=== PATIENT | female | born 1980 | race African-American/Black ===

== ENCOUNTER 2017-01-09 18:07 | Emergency (ER) | payer OTHER, MEDICAID ==
[~2017-01-09] VITALS: Ht 160 cm; Wt 131.5 kg
[~2017-01-09 18:07] MED LIST: ALBUTEROL SULF8.5 GM INH; ALEVE220 M2 PO; AMOXICILLIN125 MG ORAL; AMOXICILLIN875 MG PO; AUGMENTIN 875-1 EAC1 ORAL; AURALGAN OTIC1 DROP LEFT EYE; CIPRO500 MG PO; CLINDAMYCIN HC300 MG ORAL; DIFLUCAN100 MG ORAL; IBUPROFEN800 MG PO; KEFLEX500 MG ORAL; MOTRIN800 MG PO; NITROFURANTOIN100 M2 ORAL; NKM; NORCO 10-325 T1 EACH ORAL; NORCO 10/3251 EA ORAL; NORCO 5-325 TA1 EAC1 ORAL; NORCO1 E1 ORAL; ONDANSETRON ODT4 MG ORAL; PERCOCET 5-3251 EACH PO; PHENERGAN6.25 MG/5 ORAL; PROMETHAZINE-C118 M1 ORAL; VICODIN 5-3001 EACH PO; VICODIN ES 7.51 EACH ORAL; ZITHROMAX250 MG ORAL; ZOFRAN ODT4 MG ORAL
[2017-01-09 18:17] VITALS: BP 155/61
--- NOTE | 2017-01-09 18:40 | Emergency Room Report ---
History of Present Illness General Chief Complaint: Lower Back Pain or Injury Source: Patient Present Illness HPI 36-year-old female presents to the emergency department complaining of 10 out of 10 in severity localized right-sided low back pain x3 days. Patient reports acute onset after playing on the ground with her pitbull 3 days ago. She denies history of heavy lifting or strenuous activity otherwise. Patient states she went to work and realized that her pain was not improving. Patient reports that with certain movements she feels electrical type sensation in the right side of her low back. Pt. reports pain to be otherwise constant and does not move in location. denies dysuria, hematuria, frequency. denies . Patient denies or fall. Patient denies history of back conditions. Patient reports past medical history of TMJ. Denies fevers, chills, recent spinal procedures, rashes or a history of cancer. Denies numbness tingling or loss of sensation or gross motor movements of the extremities, incontinence of bowel or bladder. Denies CP, Palpitations, LOC, AMS, dizziness, Changes in Vision, Sensation, paresthesias, or a sudden severe headache. Allergies: Coded Allergies: SULFAMETHOXAZOLE (Verified Allergy, Unknown, FEELS SICK/SHAKES/VOMITING, 03/04/11) TRIMETHOPRIM (Verified Allergy, Unknown, 03/01/11) Patient History Past Medical History: see triage record Past Surgical History: none Pertinent Family History: none Last Menstrual Period: 12/18/16 Now: No Reviewed Nursing Documentation: PMH: Agreed, PSxH: Agreed Nursing Documentation-PMH Past Medical History: No History, Except For Hx Asthma: Yes - CHILDHOOD Hx Gastrointestinal Problems: Yes Review of Systems All Other Systems: negative except mentioned in HPI Physical Exam Vital Signs Date Time Temp Pulse Resp B/P (MAP) Pulse Ox O2 Delivery O2 Flow Rate FiO2 01/09/17 18:10 98.1 69 18 155/61 97 Room Air Sp02 EP Interpretation: reviewed, normal General Appearance: no apparent distress, alert, GCS 15, non-toxic Head: normocephalic, atraumatic Eyes: bilateral eye normal inspection, bilateral eye PERRL ENT: hearing grossly normal, normal voice Neck: full range of motion, no bony tend, supple/symm/no masses Respiratory: lungs clear, normal breath sounds, speaking full sentences Cardiovascular #1: regular rate, rhythm Gastrointestinal: normal bowel sounds, non tender, soft, no guarding, no rebound Rectal: deferred Genitourinary: normal inspection, no CVA tenderness Musculoskeletal: back normal, gait/station normal, normal range of motion, tender - TTP to the right paraspinal musculature, no midline ttp. no step-offs or obvious deformity, pt. has FROM, ambulatory, pain exacerbated durring flexion. Neurologic: alert, oriented x3, responsive, motor strength/tone normal, sensory intact, normal gait, speech normal, other - NVI to lower extremities Psychiatric: judgement/insight normal, memory normal, mood/affect normal Reflexes: 2+ knee (R), 2+ knee (L) Skin: normal color, no rash, warm/dry Medical Decision Making PA Attestation Dr. Forrest is my supervising Physician whom patient management has been discussed with. Diagnostic Impression: Primary Impression: Strain of lumbar paraspinal muscle Qualified Codes: S39.012A - Strain of muscle, fascia and tendon of lower back , initial encounter Additional Impression: Low back pain Qualified Codes: M54.41 - Lumbago with sciatica, right side ER Course 36-year-old female presents to the emergency department complaining of 10 out of 10 in severity localized right-sided low back pain x3 days. Patient reports acute onset after playing on the ground with her pitbull 3 days ago. She denies history of heavy lifting or strenuous activity otherwise. Patient states she went to work and realized that her pain was not improving. Patient reports that with certain movements she feels electrical type sensation in the right side of her low back. Pt. reports pain to be otherwise constant and does not move in location. denies dysuria, hematuria, frequency. denies . Patient denies or fall. Patient denies history of back conditions. Patient reports past medical history of TMJ. Denies fevers, chills, recent spinal procedures, rashes or a history of cancer. Denies numbness tingling or loss of sensation or gross motor movements of the extremities, incontinence of bowel or bladder. Denies CP, Palpitations, LOC, AMS, dizziness, Changes in Vision, Sensation, paresthesias, or a sudden severe headache. Ddx considered but are not limited to Fracture, dislocation, contusion, epidural abscess, Sprain/Strain/Spasm Vital signs: are WNL, pt. is afebrile H&PE are most consistent with lumbar paraspinal muscle strain, TTP to the right paraspinal musculature, no midline ttp. Pt. unable to tolerate straight leg raise. ORDERS: X-ray not required at this time, no spinous process tenderness -UA: Unremarkable, no obvious evidence of infection, most likely contamination -Urine Hcg: Negative ED INTERVENTIONS: - Soma PO IM Toradol 20mg. Re-Evaluation: pt. states his pain has subsided with ED interventions -d/w pt. she will be d/c with conservative treatment, encouraged rest and light activity. d/w pt. to follow up with PMD in 3-5 days. Gave ED return precautions for worsening or new symptoms. DISCHARGE: At this time pt. is stable for d/c to home. Will provide printed patient care instructions, and any necessary prescriptions. Care plan and follow up instructions have been discussed with the patient prior to discharge. Labs Test 01/09/17 18:30 Urine Color Pale yellow Urine Appearance Clear Urine pH 7 (4.5-8.0) Urine Specific [place] 1.005 (1.005-1.035) Urine Protein Negative (NEGATIVE) Urine Glucose (UA) Negative (NEGATIVE) Urine Ketones Negative (NEGATIVE) Urine Occult Blood 1+ (NEGATIVE) Urine Nitrite Negative (NEGATIVE) Urine Bilirubin Negative (NEGATIVE) Urine Urobilinogen Normal MG/DL (0.0-1.0) Urine Leukocyte Esterase 3+ (NEGATIVE) Urine RBC 0-2 /HPF (0 - 2) Urine WBC 2-4 /HPF (0 - 2) Urine Squamous Epithelial Cells Few /LPF (NONE/OCC) Urine Amorphous Sediment Few /LPF (NONE) Urine Bacteria Few /HPF (NONE) Urine HCG, Qualitative Negative Last Vital Signs Date Time Temp Pulse Resp B/P (MAP) Pulse Ox O2 Delivery O2 Flow Rate FiO2 01/09/17 18:17 98.1 69 18 155/61 97 Room Air Disposition: HOME, SELF-CARE Condition: Stable Scripts Ibuprofen* (MOTRIN*) 600 Mg Tablet 600 MG ORAL THREE TIMES A DAY, #20 TAB 0 Refills Prov: Nika Mcdonald P.A. 01/09/17 Methocarbamol* (ROBAXIN-750*) 750 Mg Tablet 750 MG PO TID for 7 Days, #21 TAB 0 Refills Prov: Nika Mcdonald P.A. 01/09/17 Departure Forms: Return to Work Return to Work Date: Jan 13, 2017 Work Restrictions: No Heavy Lifting, No Prolonged Standing Other Restrictions: light duty x 1 week. Return to Full Activity: Jan 19, 2017 Patient Instructions: Lumbosacral Strain Additional Instructions: Take medications as directed. Follow up with a Primary Care Provider in 3-5 days, even if your symptoms have resolved. --Please review list of primary care clinics, if you do not already have a primary care provider Return sooner to ED if new symptoms occur, or current symptoms become worse. Do not drink alcohol, drive, or operate heavy machinery while taking Muscle Relaxer: Robaxin as this may cause drowsiness. - Please note that this Emergency Department Report was dictated using [employer] installer technology software, occasionally this can lead to erroneous entry secondary to interpretation by the dictation equipment. Nika Mcdonald Jan 09, 2017 18:40
[2017-01-09 19:08] LABS: APPEARANCE,URINE CLEAR; KETONES,URINE NEGATIVE (NEGATIVE); LEUKOCYTE ESTERASE ,URINE 3+ (NEGATIVE); NITRITE,URINE NEGATIVE (NEGATIVE); PH,URINE 7 (4.5-8.0); PROTEIN,URINE NEGATIVE (NEGATIVE); UROBILINOGEN,URINE NORMAL MG/DL (0.0-1.0)
[2017-01-09 19:18] LABS: RBC,URINE 0-2 /HPF (0 - 2)
[2017-01-09 19:19] LABS: AMORPHOUS SEDIMENT,UR FEW /LPF; BACTERIA,URINE FEW /HPF; SQUAMOUS EPITHELIAL CELL,UR FEW /LPF (NONE/OCC)
[2017-01-09] MEDS ORDERED: Ketorolac 60mg Inj IM ONE (19:30)
[2017-01-09] MEDS ORDERED: ROBAXIN-750750 MG PO (19:38)
[2017-01-09] MEDS ORDERED: IBUPROFEN600 MG ORAL (19:38)
[2017-01-09 19:50] VITALS: BP 140/90
== END 2017-01-09 19:54 | disposition home or self-care (01) ==
LOC: EMR 18:45
DX: S39.012A Strain of muscle, fascia and tendon of lower back, initial encounter (principal); Y92.69 Other specified industrial and construction area as the place of occurrence of the external cause; W54.0XXA Bitten by dog, initial encounter
CPT/HCPCS: 81003; 81025; 96372; 99284

== ENCOUNTER 2017-01-21 17:09 | Emergency (ER) | payer OTHER, MEDICAID ==
[~2017-01-21] VITALS: Ht 160 cm; Wt 131.5 kg
[~2017-01-21 17:09] MED LIST changes: +IBUPROFEN600 MG ORAL; +ROBAXIN-750750 MG PO
[2017-01-21 17:40] VITALS: BP 186/91
[2017-01-21 18:45] LABS: BASOPHILS % (AUTO) 2.1 % (0.0-2.0); EOSINOPHILS % (AUTO) 1.3 % (0.0-3.0); MEAN CORPUSCULAR HEMOGLOBIN 26.5 PG (27.0-31.0); MEAN CORPUSCULAR HGB CONC 30.9 G/DL (32.0-36.0); MEAN CORPUSCULAR VOLUME 86 FL (80-99); MEAN PLATELET VOLUME 6.4 FL (6.5-10.1); MONOCYTES % (AUTO) 5.2 % (1.0-10.0); NEUTROPHILS % (AUTO) 69.3 % (45.0-75.0); PLATELET COUNT 335 K/UL (150-450); RED CELL DISTRIBUTION WIDTH 13.7 % (11.6-14.8); WHITE BLOOD COUNT 8.1 K/UL (4.8-10.8)
[2017-01-21 18:46] LABS: APPEARANCE,URINE CLEAR; KETONES,URINE NEGATIVE (NEGATIVE); LEUKOCYTE ESTERASE ,URINE 1+ (NEGATIVE); NITRITE,URINE NEGATIVE (NEGATIVE); PH,URINE 6 (4.5-8.0); PROTEIN,URINE 1+ (NEGATIVE); UROBILINOGEN,URINE NORMAL MG/DL (0.0-1.0)
[2017-01-21 18:48] LABS: ALANINE AMINOTRANSFERASE 16 U/L (12-78); ALBUMIN/GLOBULIN RATIO 0.6 (1.0-2.7); ANION GAP 7 mmol/L (5-15); ASPARTATE AMINO TRANSFERASE 17 U/L (15-37); CALCIUM 9.6 MG/DL (8.5-10.1); CARBON DIOXIDE 28 MMOL/L (21-32); CHLORIDE 103 MMOL/L (98-107); CREATININE 1.3 MG/DL (0.55-1.30); GLOMERULAR FILTRATION RATE 56.8 mL/min (>60); POTASSIUM 4.2 MMOL/L (3.5-5.1); SODIUM 138 MMOL/L (136-145); TOTAL PROTEIN 9.1 G/DL (6.4-8.2)
[2017-01-21 18:50] LABS: AMORPHOUS SEDIMENT,UR FEW /LPF; BACTERIA,URINE MODERATE /HPF; SQUAMOUS EPITHELIAL CELL,UR FEW /LPF (NONE/OCC)
[2017-01-21] MEDS ORDERED: DiphenhydrAMINE 50mg/ml Inj IVP ONE (19:00)
[2017-01-21] MEDS ORDERED: Ketorolac 30mg Inj IV ONE (19:00)
[2017-01-21] MEDS ORDERED: Metoclopramide 10mg/2ml Inj IVP ONE (19:00)
[2017-01-21 19:30] VITALS: BP 143/83
[2017-01-21] MEDS ORDERED: Morphine Sulfate 4mg/ml Inj IVP ONE (20:00)
[2017-01-21] MEDS ORDERED: NITROFURANTOIN100 M2 ORAL (20:09)
[2017-01-21] MEDS ORDERED: IBUPROFEN600 MG ORAL (20:09)
[2017-01-21 20:18] VITALS: BP 143/83
--- NOTE | 2017-01-21 21:27 | Emergency Room Report ---
History of Present Illness General Chief Complaint: Headache Source: Patient Present Illness HPI The patient is a 36-year-old female presenting for headache. She states that the headache began 2 days prior described as a 10 out of 10 dull ache to both sides of the head. The patient admits to nausea and vomiting as well as photophobia. She has not tried any pain medications at home. She states she has been unable to eat or drink well recently due to the nausea. She denies history of migraines. She denies other symptoms including fever, chills, neck pain or stiffness, shortness of breath, chest pain, numbness or tingling Allergies: Coded Allergies: SULFAMETHOXAZOLE (Verified Allergy, Unknown, FEELS SICK/SHAKES/VOMITING, 03/04/11) TRIMETHOPRIM (Verified Allergy, Unknown, 03/01/11) Patient History Past Medical History: see triage record Pertinent Family History: none Last Menstrual Period: 01/17/17 Reviewed Nursing Documentation: PMH: Agreed, PSxH: Agreed Nursing Documentation-PMH Past Medical History: No History, Except For Hx Asthma: Yes - CHILDHOOD Hx Gastrointestinal Problems: Yes Review of Systems All Other Systems: negative except mentioned in HPI Physical Exam Vital Signs Date Time Temp Pulse Resp B/P (MAP) Pulse Ox O2 Delivery O2 Flow Rate FiO2 01/21/17 17:21 98.1 79 16 186/91 97 Room Air Sp02 EP Interpretation: reviewed, normal General Appearance: no apparent distress, alert, GCS 15, non-toxic Head: normocephalic, atraumatic Eyes: bilateral eye normal inspection, bilateral eye PERRL ENT: hearing grossly normal, normal pharynx, no angioedema, normal voice Neck: full range of motion, supple, no bony tend, supple/symm/no masses Respiratory: chest non-tender, lungs clear, normal breath sounds, speaking full sentences Gastrointestinal: normal bowel sounds, non tender, soft, non-distended, no guarding, no rebound Genitourinary: normal inspection, no CVA tenderness Musculoskeletal: back normal, gait/station normal, normal range of motion, non- tender Neurologic: alert, oriented x3, responsive, motor strength/tone normal, sensory intact, speech normal Psychiatric: judgement/insight normal, memory normal, mood/affect normal, no suicidal/homicidal ideation Skin: normal color, no rash, warm/dry, well hydrated Lymphatic: no adenopathy Medical Decision Making PA Attestation Dr. Rivera is my supervising physician. Patient management was discussed with my supervising physician Diagnostic Impression: Primary Impression: Urinary tract infection Qualified Codes: N39.0 - Urinary tract infection, site not specified Additional Impression: Headache Qualified Codes: R51 - Headache ER Course The patient is a 36-year-old female presenting for headache. Differential diagnoses include but not limited to Migraine, tension headache, meningitis, dehydration, among others PE: vitals show HTN. Afebrile. NAD HEENT: unremarkable. PERRL. EOMI. Neck is soft and supple. Full AROM. Labs: CBC and CMP unremarkable Urine is negative Urinalysis shows white blood cells with bacteria She is given IV Toradol, reglan, and benadryl and is feeling better. She is also given IV morphine and states pain has resolved. The patient is discharged home and will be treated for UTI with Macrobid. She is given return precautions including increased pain, continued nausea and vomiting, neck pain or stiffness, fevers Laboratory Tests Test 01/21/17 18:10 01/21/17 18:15 Urine Color Pale yellow Urine Appearance Clear Urine pH 6 (4.5-8.0) Urine Specific [place] 1.010 (1.005-1.035) Urine Protein 1+ (NEGATIVE) H Urine Glucose (UA) Negative (NEGATIVE) Urine Ketones Negative (NEGATIVE) Urine Occult Blood 5+ (NEGATIVE) H Urine Nitrite Negative (NEGATIVE) Urine Bilirubin Negative (NEGATIVE) Urine Urobilinogen Normal MG/DL (0.0-1.0) Urine Leukocyte Esterase 1+ (NEGATIVE) H Urine RBC 10-15 /HPF (0 - 2) H Urine WBC 5-10 /HPF (0 - 2) H Urine Squamous Epithelial Cells Few /LPF (NONE/OCC) Urine Amorphous Sediment Few /LPF (NONE) H Urine Bacteria Moderate /HPF (NONE) H Urine HCG, Qualitative Negative White Blood Count 8.1 K/UL (4.8-10.8) Red Blood Count 4.30 M/UL (4.20-5.40) Hemoglobin 11.4 G/DL (12.0-16.0) L Hematocrit 36.9 % (37.0-47.0) L Mean Corpuscular Volume 86 FL (80-99) Mean Corpuscular Hemoglobin 26.5 PG (27.0-31.0) L Mean Corpuscular Hemoglobin Concent 30.9 G/DL (32.0-36.0) L Red Cell Distribution Width 13.7 % (11.6-14.8) Platelet Count 335 K/UL (150-450) Mean Platelet Volume 6.4 FL (6.5-10.1) L Neutrophils (%) (Auto) 69.3 % (45.0-75.0) Lymphocytes (%) (Auto) 22.0 % (20.0-45.0) Monocytes (%) (Auto) 5.2 % (1.0-10.0) Eosinophils (%) (Auto) 1.3 % (0.0-3.0) Basophils (%) (Auto) 2.1 % (0.0-2.0) H Sodium Level 138 MMOL/L (136-145) Potassium Level 4.2 MMOL/L (3.5-5.1) Chloride Level 103 MMOL/L (98-107) Carbon Dioxide Level 28 MMOL/L (21-32) Anion Gap 7 mmol/L (5-15) Blood Urea Nitrogen 12 mg/dL (7-18) Creatinine 1.3 MG/DL (0.55-1.30) Estimate Glomerular Filtration Rate 56.8 mL/min (>60) Glucose Level 99 MG/DL (74-106) Calcium Level 9.6 MG/DL (8.5-10.1) Total Bilirubin 0.5 MG/DL (0.2-1.0) Aspartate Amino Transferase (AST) 17 U/L (15-37) Alanine Aminotransferase (ALT) 16 U/L (12-78) Alkaline Phosphatase 86 U/L (46-116) Total Protein 9.1 G/DL (6.4-8.2) H Albumin 3.5 G/DL (3.4-5.0) Globulin 5.6 g/dL Albumin/Globulin Ratio 0.6 (1.0-2.7) L Lab Results Impression CBC and CMP unremarkable Urine is negative Urinalysis shows white blood cells with bacteria Last Vital Signs Date Time Temp Pulse Resp B/P (MAP) Pulse Ox O2 Delivery O2 Flow Rate FiO2 01/21/17 20:19 98.1 01/21/17 20:18 82 16 143/83 98 Room Air Status: improved Disposition: HOME, SELF-CARE Condition: Improved Scripts Nitrofurantoin Monohyd/M-Cryst* (MACROBID 100 MG*) 100 Mg Capsule 100 MG ORAL EVERY 12 HOURS, #14 CAP Prov: SHEY CHAUDHRY 01/21/17 Ibuprofen* (MOTRIN*) 600 Mg Tablet 600 MG ORAL Q8H Y for For Pain, #30 TAB 0 Refills Prov: SHEY CHAUDHRY 01/21/17 Patient Instructions: General Headache Without Cause Additional Instructions: I discussed my findings with the patient. All questions and concerns have been answered. Treatment and medication compliance have been addressed. I advised the patient that they need to follow up with primary doctor within 3 days. Return to ED if symptoms worsen, new symptoms arise such as fever and/or neck pain/stiffness, or if needed for any reason. Patient verbalized understanding of discharge instructions. SHEY CHAUDHRY Jan 21, 2017 21:27
== END 2017-01-21 20:20 | disposition home or self-care (01) ==
LOC: EMR 17:30
DX: N39.0 Urinary tract infection, site not specified (principal); R51 Headache; Z88.2 Allergy status to sulfonamides
CPT/HCPCS: 36415; 80053; 81003; 81025; 85025; 87086; 96361; 96374; 96375; 99284; J1200; J1885; J2270; J2405; J2765

== ENCOUNTER 2017-10-21 09:51 | Emergency (ER) | payer MEDICAID, OTHER ==
[~2017-10-21] VITALS: Ht 160 cm; Wt 126.6 kg
[2017-10-21 10:13] VITALS: BP 140/81
--- NOTE | 2017-10-21 10:31 | Emergency Room Report ---
History of Present Illness General Chief Complaint: Headache Source: Patient Present Illness HPI Patient with purulent drainage from R upper molar for few days with drainage. Multiple teeth broken and caries. No pus like this. Denies fever. Pain radiates cheek to upper face. No chills. Unable to sleep. Pain rated 10/10, constant. Unable to open mouth due to TMJ. Was starting to go to ENT, then stopped as had long waits at [facility]. Able to eat and swallow with difficulty. No neck pain. No URi sy. 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 Last Menstrual Period: 09/24/17 Reviewed Nursing Documentation: PMH: Agreed; PSxH: Agreed Nursing Documentation-PMH Past Medical History: No History, Except For Hx Asthma: Yes - CHILDHOOD Hx Gastrointestinal Problems: Yes Review of Systems All Other Systems: negative except mentioned in HPI Physical Exam Vital Signs Date Time Temp Pulse Resp B/P (MAP) Pulse Ox O2 Delivery O2 Flow Rate FiO2 10/21/17 10:01 97.8 70 20 140/81 96 Room Air 97.9 General Appearance: well appearing, no apparent distress Head: normocephalic, atraumatic ENT: hearing grossly normal, normal voice, moist mucus membranes, other - multiple carious teeth with some gum swelling near upper R molar Decreased ROM of jaw Neck: full range of motion, supple, no meningismus, no bony tend Respiratory: lungs clear, no respiratory distress, speaking full sentences Cardiovascular #1: regular rate, rhythm Cardiovascular #2: 2+ radial (R) Gastrointestinal: normal inspection, normal bowel sounds Musculoskeletal: digits/nails normal, gait/station normal, normal range of motion Neurologic: alert, oriented x3, normal gait, grossly normal Psychiatric: mood/affect normal - tearful Skin: no rash Medical Decision Making Diagnostic Impression: Primary Impression: Dental abscess Additional Impression: TMJ (temporomandibular joint syndrome) ER Course Patient with dental abscess. Salivary gland not tender. No facial cellulitis. Also limitation of TMJ. Antibiotics and analgesics indicated. Not toxic or dehydrated. Discussed possible follow up for teeth and also jaw. Improved with treatment. Patient stable for outpatient observation and treatment. Last Vital Signs Date Time Temp Pulse Resp B/P (MAP) Pulse Ox O2 Delivery O2 Flow Rate FiO2 10/21/17 11:09 97.8 71 16 141/79 98 Room Air Status: improved Disposition: HOME, SELF-CARE Condition: Improved Scripts Chlorhexidine (CHLORHEXIDINE FLAVOR) 1 Ml Liquid 1 ML MC QID, #120 ML 1 Refill Prov: Víctor Forrest M.D. 10/21/17 Amoxicillin* (AMOXIL*) 500 Mg Capsule 500 MG ORAL THREE TIMES A DAY, #21 CAP Prov: Víctor Forrest M.D. 10/21/17 Tramadol Hcl* (ULTRAM*) 50 Mg Tablet 50 MG ORAL Q6H PRN for For Pain, #14 TAB 0 Refills Prov: Víctor Forrest M.D. 10/21/17 Ibuprofen* (MOTRIN*) 600 Mg Tablet 600 MG ORAL Q6H PRN for For Pain, #20 TAB Prov: Víctor Forrest M.D. 10/21/17 Víctor Forrest M.D. Oct 21, 2017 10:31
[2017-10-21] MEDS ORDERED: IBUPROFEN600 MG ORAL (10:59)
[2017-10-21] MEDS ORDERED: CHLORHEXIDINE FL1 M1 MC (10:59)
[2017-10-21] MEDS ORDERED: TRAMADOL HCL50 MG ORAL (10:59)
[2017-10-21] MEDS ORDERED: AMOXICILLIN500 MG ORAL (10:59)
[2017-10-21 11:09] VITALS: BP 141/79
== END 2017-10-21 11:09 | disposition home or self-care (01) ==
LOC: EMR 10:31
DX: K04.7 Periapical abscess without sinus (principal); Z88.2 Allergy status to sulfonamides; M26.609 Unspecified temporomandibular joint disorder, unspecified side
CPT/HCPCS: 99284

== ENCOUNTER 2018-01-04 23:04 | Emergency (ER) | payer MEDICAID ==
[~2018-01-04] VITALS: Ht 160 cm; Wt 122.5 kg
[~2018-01-04 23:04] MED LIST changes: +AMOXICILLIN500 MG ORAL; +CHLORHEXIDINE FL1 M1 MC; +TRAMADOL HCL50 MG ORAL
[2018-01-04 23:25] VITALS: BP 148/91
[2018-01-04] MEDS ORDERED: IBUPROFEN600 MG ORAL (23:27)
[2018-01-04] MEDS ORDERED: PENICILLIN V P500 MG PO (23:27)
[2018-01-04] MEDS ORDERED: Ketorolac 30mg Inj IM ONE (23:30)
[2018-01-04 23:50] VITALS: BP 148/91
--- NOTE | 2018-01-05 02:33 | Emergency Room Report ---
History of Present Illness General Chief Complaint: General Complaint Source: Patient, Medical Record Present Illness HPI Patient is a 37-year-old female presented after increased dental pain. Patient had gradual onset of symptoms. She reports having increased difficulty with movements of her jaw. Patient had similar symptoms in the past. Patient reports having seen a dentist in the past for the similar symptoms and was told that she had the to have a jaw repair. The patient denies any fever. Allergies: Coded Allergies: SULFAMETHOXAZOLE (Verified Allergy, Unknown, FEELS SICK/SHAKES/VOMITING, 03/04/11) TRIMETHOPRIM (Verified Allergy, Unknown, 03/01/11) Patient History Past Medical History: see triage record Last Menstrual Period: December 18 Now: No : 1 Para: 0 Reviewed Nursing Documentation: PMH: Agreed; PSxH: Agreed Nursing Documentation-PMH Past Medical History: No History, Except For Hx Asthma: Yes - CHILDHOOD Hx Gastrointestinal Problems: Yes Review of Systems All Other Systems: negative except mentioned in HPI Physical Exam Vital Signs Date Time Temp Pulse Resp B/P (MAP) Pulse Ox O2 Delivery O2 Flow Rate FiO2 01/04/18 23:11 68 16 149/94 95 Room Air 01/04/18 23:25 98.0 98.0 General Appearance: well appearing, no apparent distress, alert, GCS 15 Head: normocephalic, atraumatic ENT: hearing grossly normal, normal voice, other - tenderness bilaterally to tmj, no swelling noted Neck: full range of motion, supple Respiratory: no respiratory distress, speaking full sentences Musculoskeletal: no calf tenderness Neurologic: normal gait Psychiatric: mood/affect normal Skin: no rash Medical Decision Making Diagnostic Impression: Primary Impression: Pain, dental ER Course The patient presented for dental pain. Differential diagnosis included but was not limited to trigeminal neuralgia, dental abscess, dry socket, osteomyelitis, nerve injury. The patient was noted to have a benign exam. The patient was given prescription for penicillin for presumed dental infection. The patient appears have some chronic joint dysfunction to her jaw. Others not appear to be any definite abscess. The patient is advised to follow up with primary care doctor in 1-2 days. Patient is advised to return if any worsening condition or if any changes in status that are concerning. Last Vital Signs Date Time Temp Pulse Resp B/P (MAP) Pulse Ox O2 Delivery O2 Flow Rate FiO2 01/04/18 23:25 98.0 78 16 148/91 95 Room Air 98.0 Status: improved Disposition: HOME, SELF-CARE Condition: Stable Scripts Penicillin V Potassium* (PENVK*) 500 Mg Tablet 500 MG PO Q6H, #28 TAB 0 Refills Prov: Marcos Florez MD 01/04/18 Ibuprofen* (MOTRIN*) 600 Mg Tablet 600 MG ORAL Q8H PRN for For Pain, #30 TAB 0 Refills Prov: Marcos Florez MD 01/04/18 Referrals: [facility]ERR[facility] (PCP) Patient Instructions: Dental Pain Marcos Florez MD Jan 05, 2018 02:32
== END 2018-01-04 23:50 | disposition home or self-care (01) ==
LOC: EMR 23:29
DX: K08.89 Other specified disorders of teeth and supporting structures (principal); Z88.2 Allergy status to sulfonamides
CPT/HCPCS: 80307; 81025; 96372; 99284; J1885

== ENCOUNTER 2018-04-16 08:53 | Emergency (ER) | payer MEDICAID ==
[~2018-04-16] VITALS: Ht 160 cm; Wt 120.2 kg
[~2018-04-16 08:53] MED LIST changes: +PENICILLIN V P500 MG PO
[2018-04-16 09:15] VITALS: BP 128/79
--- NOTE | 2018-04-16 09:15 | NUR ---
ED Nurse Note: Pt AAO x4 present at ER c/o mouth sore 12/13, one in Rt second one in Lt side of mouth. Mouth sores were unable to observe due to pt cannot open her mouth big enough. Pt stated "I cannot open my mouth big and I don't know why. It has been this way for last 4 years." Will try again with MD's assessment. Pt remaining calm and cooperatvie with initial assessment.
--- NOTE | 2018-04-16 09:46 | NUR ---
ED Nurse Note: Pt walked out of ER. Nurse followed her and asked where she is going and she said "Fuck you. Don't follow me." Nurse explained to her that we need to remove ID band and doctor will be with her shortly and she said "How dare you follow me after making me wait more than a hour. Fuck you." Unable to obtain last set of VS. No visable changes of conditions since pt's arrival.
--- NOTE | 2018-04-16 10:08 | Emergency Room Report ---
History of Present Illness General Chief Complaint: Skin Rash/Abscess Source: Medical Record Present Illness Allergies: Coded Allergies: SULFAMETHOXAZOLE (Verified Allergy, Unknown, FEELS SICK/SHAKES/VOMITING, 03/04/11) TRIMETHOPRIM (Verified Allergy, Unknown, 03/01/11) Patient History Last Menstrual Period: 04/2018 Now: No : 0 Para: 0 Nursing Documentation-PMH Hx Asthma: Yes - CHILDHOOD Hx Gastrointestinal Problems: Yes Physical Exam Vital Signs Date Time Temp Pulse Resp B/P (MAP) Pulse Ox O2 Delivery O2 Flow Rate FiO2 04/16/18 09:02 97.9 69 18 136/79 97 Room Air Medical Decision Making ER Course Patient left without being seen. Last Vital Signs Date Time Temp Pulse Resp B/P (MAP) Pulse Ox O2 Delivery O2 Flow Rate FiO2 04/16/18 09:15 97.8 72 18 128/79 97 Room Air Disposition: LEFT W/OUT BEING SEEN Condition: Unknown Referrals: [facility] (PCP) Marcos Florez MD Apr 16, 2018 10:08
[2018-04-17] MEDS ORDERED: AMOXICILLIN500 MG ORAL (20:17)
[2018-04-17] MEDS ORDERED: NAPROXEN250 MG ORAL (20:17)
[2018-04-17] MEDS ORDERED: HIBICLENS118 ML TP (20:25)
== END 2018-04-16 10:58 | disposition left against medical advice (07) ==
LOC: EMR 09:45
DX: R21 Rash and other nonspecific skin eruption (principal); Z53.21 Procedure and treatment not carried out due to patient leaving prior to being seen by health care provider

== ENCOUNTER 2018-04-17 19:41 | Emergency (ER) | payer MEDICAID ==
[~2018-04-17] VITALS: Ht 160 cm; Wt 120.2 kg
[2018-04-17 19:56] VITALS: BP 159/81
--- NOTE | 2018-04-17 19:58 | NUR ---
ED Nurse Note: Patient has mouth pain from dental issue that dates back 4 years. 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 patient is alert and oriented x4, ambulatory with a steady gait, VSS
--- NOTE | 2018-04-17 20:09 | Emergency Room Report ---
History of Present Illness General Chief Complaint: Toothache Source: Patient Present Illness HPI 38-year-old female patient presents the ER complaining of upper tooth pain. States pain has increased recently in the past few days. Patient reports pain is been present intermittently for the past 4 years. Also reports history of chronic jaw pain. Patient states that she is scheduled to have joint replacement surgery. Denies bleeding or drainage. Patient reports she "feels the infection" in her teeth. Denies fever, chest pain, shortness of breath, vomiting. Denies other acute symptoms. States she has been taking Tylenol without relief of symptoms. Denies other aggravating or relieving factors. Denies . Allergies: Coded Allergies: SULFAMETHOXAZOLE (Verified Allergy, Unknown, FEELS SICK/SHAKES/VOMITING, 03/04/11) TRIMETHOPRIM (Verified Allergy, Unknown, 03/01/11) Patient History Past Medical History: see triage record Last Menstrual Period: 04/14/18 Now: No : 1 Para: 0 Reviewed Nursing Documentation: PMH: Agreed; PSxH: Agreed Nursing Documentation-PMH Past Medical History: No Stated History Hx Asthma: Yes - CHILDHOOD Hx Gastrointestinal Problems: Yes Review of Systems All Other Systems: negative except mentioned in HPI Physical Exam Vital Signs Date Time Temp Pulse Resp B/P (MAP) Pulse Ox O2 Delivery O2 Flow Rate FiO2 04/17/18 19:43 97.5 67 16 159/81 97 Room Air Sp02 EP Interpretation: reviewed, normal General Appearance: well appearing, no apparent distress, alert, GCS 15, non- toxic Head: normocephalic, atraumatic Eyes: bilateral eye normal inspection, bilateral eye PERRL ENT: hearing grossly normal, normal pharynx, no angioedema, normal voice, uvula midline, moist mucus membranes, other - Multiple missing teeth, teeth tender to palpation, broken teeth noted, dental caries noted, no surrounding erythema or edema; decreased range of motion of jaw Neck: full range of motion, no meningismus, no bony tend Respiratory: lungs clear, normal breath sounds, no rhonchi, no respiratory distress, no accessory muscle use, no wheezing, speaking full sentences Cardiovascular #1: regular rate, rhythm, no edema Skin: no rash Medical Decision Making PA Attestation Dr. Florez is my supervising Physician whom patient management has been discussed with. Diagnostic Impression: Primary Impression: Toothache ER Course Pt. presents to the ED c/o dental pain. Ddx considered but are not limited to cellulitis, abscess, dental caries, gingivitis, trigeminal neuralgia, TMJ dysfunction. Does not require imaging at this time. Vital signs: are WNL, pt. is afebrile ED INTERVENTIONS: Toradol provided in the ER. Some teeth tender to palpation, will provide abx to cover for possible infection. No signs of abscess, no fluctuance, erythema or edema. follow-up with dentist. F/u with PCP and dentist for further treatment. Decreased range of motion of jaw noted on physical exam, chronic in nature, patient following up with maxillofacial surgeon for jaw replacement surgery. no signs of facial cellulitis, no erythema or edema. Follow-up with maxillofacial specialist. ER precautions given. DISCHARGE: -Rx provided for Amoxicillin -Rx provided for naproxen Rx provided for chlorhexidine mouthwash. At this time pt. is stable for d/c to home. Patient is resting comfortably, in no acute distress, nontoxic appearing, talking and smiling without difficulty. Will provide printed patient care instructions and any necessary prescriptions. Care plan and follow up instructions have been discussed with the patient prior to discharge. Patient instructed to follow-up with primary care provider in 2 - 3 days. Followup with dentist. Patient questions asked and answered. Patient reports understanding and agreement to treatment plan. ER precautions given. Patient instructed to return to ER immediately for any new or worsening of symptoms including but not limited to fever, worsening of pain symptoms, worsening of erythema, red streaking. - Please note that this Emergency Department Report was dictated using [employer] teller technology software, occasionally this can lead to erroneous entry secondary to interpretation by the dictation equipment. Last Vital Signs Date Time Temp Pulse Resp B/P (MAP) Pulse Ox O2 Delivery O2 Flow Rate FiO2 04/17/18 19:56 97.5 89 16 159/81 97 Room Air Disposition: HOME, SELF-CARE Condition: Stable Scripts Chlorhexidine Gluconate* (HIBICLENS*) 118 Ml Liquid 118 ML TP BID, #118 ML Prov: Kb Gama P.A. 04/17/18 Naproxen* (NAPROSYN*) 250 Mg Tablet 250 MG ORAL TWICE A DAY, #30 TAB 0 Refills Prov: Kb Gama P.A. 04/17/18 Amoxicillin* (AMOXIL*) 500 Mg Capsule 500 MG ORAL EVERY 12 HOURS for 7 Days, #14 CAP Prov: Kb Gama 04/17/18 Patient Instructions: Dental Pain Additional Instructions: Follow-up with dentist in 1-2 days. Followup with primary care provider in 3 -5 days. Take medications as directed. Patient questions asked and answered. ER precautions given, patient instructed to return to ER immediately for any new or worsening of symptoms. Kb Gama Apr 17, 2018 20:09
[2018-04-17] MEDS ORDERED: NAPROXEN250 MG ORAL (20:17)
[2018-04-17] MEDS ORDERED: AMOXICILLIN500 MG ORAL (20:17)
[2018-04-17] MEDS ORDERED: HIBICLENS118 ML TP (20:25)
[2018-04-17 20:30] VITALS: BP 135/82
[2018-04-17] MEDS ORDERED: Ketorolac 30mg Inj IM ONE (20:30)
--- NOTE | 2018-04-17 20:30 | NUR ---
ED Nurse Note: patient is discharged after being cleared by ERMD. patient is alert and oriented x4, ambulatory with a steady gait, VSS. patient acknowledged the need to follow up with PMD within a week if symptoms dont improve, patients prescription in hand, ID band removed
== END 2018-04-17 20:30 | disposition home or self-care (01) ==
LOC: EMR 20:08
DX: K08.89 Other specified disorders of teeth and supporting structures (principal); Z88.2 Allergy status to sulfonamides
CPT/HCPCS: 96372; 99283; J1885

== ENCOUNTER 2018-12-05 06:54 | Emergency (ER) | payer MEDICAID ==
[~2018-12-05] VITALS: Ht 160 cm; Wt 120.2 kg
[~2018-12-05 06:54] MED LIST changes: +DICYCLOMINE HCL10 MG PO; +HIBICLENS118 ML TP; +NAPROXEN250 MG ORAL; +ONDANSETRON ODT4 MG BC; +RANITIDINE HCL150 MG ORAL
[2018-12-05] MEDS ORDERED: UNOBMED (07:06)
--- NOTE | 2018-12-05 07:11 | NUR ---
ED Nurse Note: Pt walked in due to left side CP, non radiating with dizziness x 2 days. Denies vomiting and pt is currently on her menstrual period. AAO x4, and ambulates with steady gait. No respiratory distress and lungs are clear when auscultated. EKG done. ER MD aware.
[2018-12-05 07:26] VITALS: BP 156/85
--- NOTE | 2018-12-05 07:28 | Emergency Room Report ---
History of Present Illness General Chief Complaint: Chest Pain Source: Patient Present Illness HPI Patient is a 38-year-old female presents after increased dizziness as well as chest discomfort. Pain is described as a poking sensation to the center of her chest. She denies any fever. She reports having some associated dizziness. She describes this as a vertigo sensation. Worse with movements with head movements. She reports having some chronic joint problems to her TMJ and is currently taking pain medications as well as muscle relaxant. She denies any fever. She reports having 200 pound weight loss over the past several years. Allergies: Coded Allergies: SULFAMETHOXAZOLE (Verified Allergy, Unknown, FEELS SICK/SHAKES/VOMITING, 03/04/11) TRIMETHOPRIM (Verified Allergy, Unknown, 03/01/11) Patient History Last Menstrual Period: 12/05/18 Reviewed Nursing Documentation: PMH: Agreed; PSxH: Agreed Nursing Documentation-PMH Past Medical History: No History, Except For Hx Asthma: Yes - CHILDHOOD Hx Gastrointestinal Problems: Yes Review of Systems All Other Systems: negative except mentioned in HPI Physical Exam Vital Signs Date Time Temp Pulse Resp B/P (MAP) Pulse Ox O2 Delivery O2 Flow Rate FiO2 12/05/18 07:01 98.2 65 12 157/85 (109) 97 Room Air General Appearance: well appearing, no apparent distress, alert, GCS 15, obese Head: normocephalic, atraumatic ENT: hearing grossly normal, normal voice Neck: full range of motion, supple Respiratory: chest non-tender, lungs clear, no respiratory distress, speaking full sentences Gastrointestinal: normal inspection, normal bowel sounds Musculoskeletal: no calf tenderness Neurologic: normal gait Psychiatric: mood/affect normal Skin: no rash Medical Decision Making Diagnostic Impression: Primary Impression: Nonspecific chest pain Additional Impression: Vertigo ER Course Patient presented for chest pain. Differential diagnosis included but was not limited to acute coronary syndrome, pulmonary embolism, pneumonia, aortic dissection, shingles, pneumothorax, aortic dissection, esophageal rupture, pericarditis. Patient has a benign exam and does not appear to require any imaging or laboratory testing at this time. Patient's EKG by me showed normal sinus rhythm without acute ST-T wave changes. Patient does not show any evidence of systemic toxicity and is no apparent distress. Patient is PERC negative. Patient's chest discomfort appears related to a viral illness. Chest x-ray reviewed by radiology showed no acute process. She was given prescription for medications due to some vertigo sensation. She was advised to follow-up with primary care physician for recheck. The patient is advised to follow up with primary care doctor in 1-2 days. Patient is advised to return if any worsening condition or if any changes in status that are concerning. This report is dictated with [email or web address] speech and language clinician software which may occasionally lead to discrepancies related to use of this software. Labs Test 12/05/18 07:45 Urine HCG, Qualitative Negative (NEGATIVE) EKG Diagnostic Results Rate: normal Rhythm: NSR ST Segments: no acute changes Last Vital Signs Date Time Temp Pulse Resp B/P (MAP) Pulse Ox O2 Delivery O2 Flow Rate FiO2 12/05/18 07:11 66 15 Room Air 12/05/18 07:01 98.2 157/85 (109) 97 Status: improved Disposition: HOME, SELF-CARE Condition: Stable Scripts Meclizine Hcl* (MECLIZINE*) 25 Mg Tablet 25 MG ORAL THREE TIMES A DAY, #30 TAB Prov: Marcos Florez MD 12/05/18 Referrals: [facility] (PCP) Marcos Florez MD Dec 05, 2018 07:28
[2018-12-05] MEDS ORDERED: Meclizine 25mg tab ORAL ONE (07:30)
--- NOTE | 2018-12-05 07:35 | NUR ---
ED Nurse Note: Pt unable to remember the medication and dose that she is taking for her anxiety.
[2018-12-05] MEDS ORDERED: MECLIZINE HCL25 MG ORAL (07:51)
[2018-12-05 08:30] VITALS: BP 159/88
--- NOTE | 2018-12-05 08:30 | NUR ---
ER DISCHARGE NOTE: Patient is cleared to be discharged per ERMD, pt is aox4, on room air, with stable vital signs. pt was given dc and prescription instructions, pt was able to verbalize understanding, pt id band removed. pt is able to ambulate with steady gait. pt took all belongings.
--- NOTE | 2018-12-05 08:34 | Diagnostic Imaging Report ---
EXAM: XR Chest, 1 View CLINICAL HISTORY: CP TECHNIQUE: Frontal view of the chest. COMPARISON: No relevant prior studies available. FINDINGS: Lungs: Unremarkable. No consolidation. Pleural space: Unremarkable. No pneumothorax. Heart: Heart size upper limits normal. Mediastinum: Unremarkable. Bones/joints: Unremarkable. IMPRESSION: No acute findings.
== END 2018-12-05 08:30 | disposition home or self-care (01) ==
LOC: EMR 07:10
DX: R07.9 Chest pain, unspecified (principal); R42 Dizziness and giddiness; J45.909 Unspecified asthma, uncomplicated; Z88.1 Allergy status to other antibiotic agents; Z88.2 Allergy status to sulfonamides
CPT/HCPCS: 71045; 81025; 99283

== ENCOUNTER 2019-03-01 05:21 | Emergency (ER) | payer MEDICAID ==
[~2019-03-01] VITALS: Ht 160 cm; Wt 121.6 kg
[~2019-03-01 05:21] MED LIST changes: +MECLIZINE HCL25 MG ORAL; +UNOBMED
[2019-03-01 05:30] VITALS: BP 161/74
[2019-03-01 05:45] LABS: BILIRUBIN, URINE NEGATIVE (NEGATIVE); COLOR,URINE RED; GLUCOSE, URINE (UA) NEGATIVE (NEGATIVE); KETONES,URINE NEGATIVE (NEGATIVE); LEUKOCYTE ESTERASE ,URINE 2+ (NEGATIVE); NITRITE,URINE NEGATIVE (NEGATIVE); PH,URINE 8 (4.5-8.0); PROTEIN,URINE 3+ (NEGATIVE); UROBILINOGEN,URINE NORMAL MG/DL (0.0-1.0)
[2019-03-01] MEDS ORDERED: Mylanta II UD 30ml ORAL ONE (05:45)
[2019-03-01] MEDS ORDERED: Dicyclomine HCl 10mg/5ml oral soln ORAL ONE (05:45)
[2019-03-01] MEDS ORDERED: Lidocaine 2% Visc 15ml soln ORAL ONE (05:45)
[2019-03-01 05:55] LABS: BASOPHILS % (AUTO) 0.6 % (0.0-2.0); EOSINOPHILS % (AUTO) 0.1 % (0.0-3.0); HEMATOCRIT 38.1 % (37.0-47.0); HEMOGLOBIN 12.2 G/DL (12.0-16.0); MEAN CORPUSCULAR VOLUME 78 FL (80-99); MONOCYTES % (AUTO) 4.5 % (1.0-10.0); NEUTROPHILS % (AUTO) 73.7 % (45.0-75.0); PLATELET COUNT 339 K/UL (150-450); RED BLOOD COUNT 4.88 M/UL (4.20-5.40); RED CELL DISTRIBUTION WIDTH 15.7 % (11.6-14.8); WHITE BLOOD COUNT 5.8 K/UL (4.8-10.8)
[2019-03-01 06:11] LABS: APPEARANCE,URINE CLOUDY
--- NOTE | 2019-03-01 06:31 | Emergency Room Report ---
History of Present Illness General Chief Complaint: Nausea, Vomiting, and Diarrhea Source: Patient (Renny Cyr MD) Present Illness HPI 38-year-old female presents ED for evaluation. Complaining of abdominal pain with nausea vomiting and diarrhea. Started yesterday. History of endometriosis. Is currently on her period. Aching control to sophie her symptoms of endometriosis. However states her pain precipitated yesterday. Pain is dull, 8 out of 10, nonradiating. Also noting nausea and diarrhea. No other aggravating relieving factors. Denies any other associated symptoms (Renny Cyr MD) Allergies: Coded Allergies: SULFAMETHOXAZOLE (Verified Allergy, Unknown, FEELS SICK/SHAKES/VOMITING, 03/04/11) TRIMETHOPRIM (Verified Allergy, Unknown, 03/01/11) Patient History Past Medical History: asthma, other - endometriosis Pertinent Family History: none Social History: Denies: smoking, alcohol use, drug use Last Menstrual Period: current Now: No Immunizations: UTD Reviewed Nursing Documentation: PMH: Agreed; PSxH: Agreed (Renny Cyr MD) Nursing Documentation-PMH Hx Asthma: Yes - CHILDHOOD Hx Gastrointestinal Problems: Yes (Renny Cyr MD) Review of Systems All Other Systems: negative except mentioned in HPI (Renny Cyr MD) Physical Exam Vital Signs Date Time Temp Pulse Resp B/P (MAP) Pulse Ox O2 Delivery O2 Flow Rate FiO2 03/01/19 05:23 97.9 75 18 173/87 (115) 96 Room Air Sp02 EP Interpretation: reviewed, normal General Appearance: no apparent distress, alert, GCS 15, non-toxic Head: normocephalic, atraumatic Eyes: bilateral eye normal inspection, bilateral eye PERRL ENT: hearing grossly normal, normal pharynx, no angioedema, normal voice Neck: full range of motion, supple/symm/no masses Respiratory: chest non-tender, lungs clear, normal breath sounds, speaking full sentences Cardiovascular #1: regular rate, rhythm, no edema Cardiovascular #2: 2+ carotid (R), 2+ carotid (L), 2+ radial (R), 2+ radial (L) , 2+ dorsalis pedis (R), 2+ dorsalis pedis (L) Gastrointestinal: normal bowel sounds, non tender, soft, non-distended, no guarding, no rebound Rectal: deferred Genitourinary: normal inspection, no CVA tenderness Musculoskeletal: back normal, normal range of motion, gait/station normal, non- tender Neurologic: alert, motor strength/tone normal, oriented x3, sensory intact, responsive, speech normal Psychiatric: judgement/insight normal, memory normal, mood/affect normal, no suicidal/homicidal ideation Reflexes: 3+ bicep (R), 3+ bicep (L), 3+ tricep (R), 3+ tricep (L), 3+ knee (R) , 3+ knee (L) Skin: no rash Lymphatic: no adenopathy (Renny Cyr MD) Medical Decision Making Diagnostic Impression: Primary Impression: Nausea, vomiting, and diarrhea Last Vital Signs Date Time Temp Pulse Resp B/P (MAP) Pulse Ox O2 Delivery O2 Flow Rate FiO2 03/01/19 05:30 98.2 61 20 161/74 96 Room Air (Renny Cyr MD) Reevaluation Time: 07:02 Status: improved Reevaluation Impression Assumed care of the patient from Dr. Cyr approximately 0630. Briefly, this is a 38-year-old female presenting for 1 day of nausea, vomiting and diarrhea. She is currently on her menses and has a history of endometriosis. She received IV fluids, antiemetics and was pending labs at the time of signout. Blood work is now resulted showing normal renal function no clinical signs of dehydration. Otherwise no significant infection and urinalysis is consistent with the patient on her menses. No evidence of acute urinary tract infection. Patient will be treated symptomatically as an outpatient and follow-up with her PMD. We discussed reasons to return to the emergency department. She understands and agrees with this treatment plan. (Piero Guerrero MD) Disposition: HOME, SELF-CARE Condition: Improved Scripts Ondansetron Odt* (ZOFRAN ODT*) 4 Mg Tab.rapdis 4 MG BC EVERY 6 HOURS PRN for Nausea & Vomiting, #20 TAB 0 Refills Prov: Piero Guerrero MD 03/01/19 Referrals: [facility] (PCP) Renny Cyr MD Mar 01, 2019 06:31 Piero Guerrero MD Mar 01, 2019 07:03
[2019-03-01 06:46] LABS: ANION GAP 12 mmol/L (5-15); BLOOD UREA NITROGEN 8 mg/dL (7-18); CALCIUM 9.1 MG/DL (8.5-10.1); CARBON DIOXIDE 25 MMOL/L (21-32); CHLORIDE 104 MMOL/L (98-107); POTASSIUM 3.7 MMOL/L (3.5-5.1); SODIUM 140 MMOL/L (136-145)
[2019-03-01 06:51] LABS: ALANINE AMINOTRANSFERASE 19 U/L (12-78); ALBUMIN 3.8 G/DL (3.4-5.0); ALBUMIN/GLOBULIN RATIO 0.7 (1.0-2.7); ALKALINE PHOSPHATASE 87 U/L (46-116); ASPARTATE AMINO TRANSFERASE 16 U/L (15-37); BILIRUBIN,TOTAL 0.4 MG/DL (0.2-1.0)
[2019-03-01] MEDS ORDERED: ONDANSETRON ODT4 MG BC (07:01)
[2019-03-01 07:10] VITALS: BP 168/78
== END 2019-03-01 07:10 | disposition home or self-care (01) ==
LOC: EMR 05:39
DX: R11.2 Nausea with vomiting, unspecified (principal); R19.7 Diarrhea, unspecified; Z88.2 Allergy status to sulfonamides; Z88.1 Allergy status to other antibiotic agents; J45.909 Unspecified asthma, uncomplicated
CPT/HCPCS: 36415; 80053; 81003; 81025; 83690; 85025; 87086; 96361; 96374; 96375; J2405; J7030; S0028; Z7502; 99284

== ENCOUNTER 2019-06-27 07:39 | Emergency (ER) | payer MEDICAID ==
[~2019-06-27] VITALS: Ht 160 cm; Wt 117.9 kg
[~2019-06-27 07:39] MED LIST changes: +ACETAMINOPHEN500 M3 ORAL; +FOLITAB 500 CA1 EACH PO
[2019-06-27] MEDS: Mylanta II UD 30ml ORAL ONE ×2 (08:00→08:12)
[2019-06-27] MEDS: Lidocaine 2% Visc 15ml soln ORAL ONE ×2 (08:00→08:15)
[2019-06-27] MEDS ORDERED: CELEXA20 MG ORAL (08:00)
[2019-06-27 08:24] LABS: BASOPHILS % (AUTO) 0.8 % (0.0-2.0); EOSINOPHILS % (AUTO) 0.6 % (0.0-3.0); HEMATOCRIT 35.7 % (37.0-47.0); HEMOGLOBIN 11.6 G/DL (12.0-16.0); LYMPHOCYTES % (AUTO) 17.2 % (20.0-45.0); MEAN CORPUSCULAR VOLUME 81 FL (80-99); MONOCYTES % (AUTO) 3.5 % (1.0-10.0); NEUTROPHILS % (AUTO) 77.9 % (45.0-75.0); PLATELET COUNT 296 K/UL (150-450); RED BLOOD COUNT 4.39 M/UL (4.20-5.40); RED CELL DISTRIBUTION WIDTH 14.9 % (11.6-14.8); WHITE BLOOD COUNT 6.1 K/UL (4.8-10.8)
[2019-06-27 08:30] VITALS: BP 142/80
[2019-06-27] MEDS ORDERED: oxyCODONE HCL/Acetaminophen 5/325mg ORAL ONE (08:30)
--- NOTE | 2019-06-27 08:30 | NUR ---
ED Nurse Note: Pt walked into ED w/ c/o abdominal pain 10/10 lower left abdomen since yesterday. Pt has nausea and has vomited over 5x in past 2 days. Pt is alert and orientedx4, ambulatory. Pt is set up on monitor. Pt states she has had hx of abd pain.
[2019-06-27 08:31] LABS: ANION GAP 8 mmol/L (5-15); BLOOD UREA NITROGEN 14 mg/dL (7-18); CARBON DIOXIDE 26 MMOL/L (21-32); CHLORIDE 104 MMOL/L (98-107); CREATININE 1.1 MG/DL (0.55-1.30); POTASSIUM 4.2 MMOL/L (3.5-5.1); SODIUM 138 MMOL/L (136-145)
[2019-06-27 08:37] LABS: ALANINE AMINOTRANSFERASE 18 U/L (12-78); ALBUMIN/GLOBULIN RATIO 0.9 (1.0-2.7); ALKALINE PHOSPHATASE 78 U/L (46-116); ASPARTATE AMINO TRANSFERASE 17 U/L (15-37); BILIRUBIN,TOTAL 0.4 MG/DL (0.2-1.0)
--- NOTE | 2019-06-27 09:02 | Emergency Room Report ---
History of Present Illness General Chief Complaint: Abdominal Pain Source: Patient Present Illness HPI This patient states that she started her period yesterday. She states she gets severe menstrual cramps. She states that her primary care physician believes that she has endometriosis. She states this is her usual menstrual cramping pain. She states the pain is severe and causes nausea and vomiting. She is having a normal flow on her menses. She denies chest pain or shortness of breath. She denies fever or chills. She denies cough or congestion. She denies headache or neck pain. She has no other complaints. COVID-19 risk:Contact w/high r: No COVID-19 risk:Travel to affect: No Has patient experienced stephenson: No Allergies: Coded Allergies: SULFAMETHOXAZOLE (Verified Allergy, Unknown, FEELS SICK/SHAKES/VOMITING, 03/04/11) TRIMETHOPRIM (Verified Allergy, Unknown, 03/01/11) Patient History Past Medical History: see triage record, renal disease Social History: Denies: smoking, alcohol use, drug use Last Menstrual Period: 06/26/19 Now: No Reviewed Nursing Documentation: PMH: Agreed; PSxH: Agreed Nursing Documentation-PMH Hx Asthma: Yes - CHILDHOOD Hx Gastrointestinal Problems: Yes Review of Systems All Other Systems: negative except mentioned in HPI Physical Exam Vital Signs Date Time Temp Pulse Resp B/P (MAP) Pulse Ox O2 Delivery O2 Flow Rate FiO2 06/27/19 07:44 97.2 75 20 151/87 (108) 100 Room Air Sp02 EP Interpretation: reviewed, normal General Appearance: no apparent distress, alert, GCS 15, non-toxic Head: normocephalic, atraumatic Eyes: bilateral eye normal inspection, bilateral eye PERRL ENT: hearing grossly normal, normal pharynx, no angioedema, normal voice Neck: full range of motion, supple/symm/no masses Respiratory: no respiratory distress, no retraction, no accessory muscle use, speaking full sentences Cardiovascular #1: regular rate, rhythm, no edema Gastrointestinal: normal bowel sounds, soft, non-distended, no guarding, no rebound, tenderness - TTP pelvis Rectal: deferred Genitourinary: normal inspection, no CVA tenderness Musculoskeletal: back normal, normal range of motion, gait/station normal, non- tender Neurologic: alert, motor strength/tone normal, oriented x3, sensory intact, responsive, speech normal Psychiatric: judgement/insight normal, memory normal, mood/affect normal, no suicidal/homicidal ideation Skin: no rash, normal color Medical Decision Making Diagnostic Impression: Primary Impression: Dysmenorrhea ER Course This patient has known dysmenorrhea. I had plan on obtaining a urinalysis, however, the patient after a while decided she wanted to leave and this was prior to giving the a urine sample. I discussed this with the patient and she does not believe she has a urinary tract infection. She states that this is her typical menstrual pain. CBC and CMP are reassuring. Overall, the patient is well-appearing and nontoxic. I suspect this is dysmenorrhea. I will give the patient Zofran ODT and prescription strength Motrin. The patient is instructed to follow closely with her primary care physician. She is also given close return precautions. Laboratory Tests Test 06/27/19 08:08 White Blood Count 6.1 K/UL (4.8-10.8) Red Blood Count 4.39 M/UL (4.20-5.40) Hemoglobin 11.6 G/DL (12.0-16.0) L Hematocrit 35.7 % (37.0-47.0) L Mean Corpuscular Volume 81 FL (80-99) Mean Corpuscular Hemoglobin 26.4 PG (27.0-31.0) L Mean Corpuscular Hemoglobin Concent 32.4 G/DL (32.0-36.0) Red Cell Distribution Width 14.9 % (11.6-14.8) H Platelet Count 296 K/UL (150-450) Mean Platelet Volume 6.7 FL (6.5-10.1) Neutrophils (%) (Auto) 77.9 % (45.0-75.0) H Lymphocytes (%) (Auto) 17.2 % (20.0-45.0) L Monocytes (%) (Auto) 3.5 % (1.0-10.0) Eosinophils (%) (Auto) 0.6 % (0.0-3.0) Basophils (%) (Auto) 0.8 % (0.0-2.0) Sodium Level 138 MMOL/L (136-145) Potassium Level 4.2 MMOL/L (3.5-5.1) Chloride Level 104 MMOL/L (98-107) Carbon Dioxide Level 26 MMOL/L (21-32) Anion Gap 8 mmol/L (5-15) Blood Urea Nitrogen 14 mg/dL (7-18) Creatinine 1.1 MG/DL (0.55-1.30) Estimated Glomerular Filtration Rate > 60 mL/min (>60) Glucose Level 125 MG/DL (74-106) H Calcium Level 9.0 MG/DL (8.5-10.1) Total Bilirubin 0.4 MG/DL (0.2-1.0) Aspartate Amino Transferase (AST) 17 U/L (15-37) Alanine Aminotransferase (ALT) 18 U/L (12-78) Alkaline Phosphatase 78 U/L (46-116) Total Protein 8.6 G/DL (6.4-8.2) H Albumin 4.0 G/DL (3.4-5.0) Globulin 4.6 g/dL Albumin/Globulin Ratio 0.9 (1.0-2.7) L Lipase 103 U/L (73-393) Last Vital Signs Date Time Temp Pulse Resp B/P (MAP) Pulse Ox O2 Delivery O2 Flow Rate FiO2 06/27/19 07:44 97.2 75 20 151/87 (108) 100 Room Air Status: improved Disposition: HOME, SELF-CARE Condition: Improved Referrals: [facility] (PCP) Keyona Joel DO Jun 27, 2019 09:02
[2019-06-27] MEDS ORDERED: ZOFRAN ODT8 MG ORAL (09:04)
[2019-06-27] MEDS ORDERED: IBUPROFEN800 MG ORAL (09:04)
[2019-06-27 09:08] VITALS: BP 141/77
--- NOTE | 2019-06-27 09:08 | NUR ---
ER DISCHARGE NOTE: Patient is cleared to be discharged per ERMD, pt is aox4, on room air, with stable vital signs. pt was given dc and prescription instructions, pt was able to verbalize understanding, pt id band and iv site removed without complications. pt is able to ambulate with steady gait. pt took all belongings. states ok to d/c w/out urine sample.
[2019-06-27] MEDS ORDERED: KEPPRA500 MG ORAL (23:16)
== END 2019-06-27 09:08 | disposition home or self-care (01) ==
LOC: EMR 07:52
DX: N94.6 Dysmenorrhea, unspecified (principal); R11.2 Nausea with vomiting, unspecified; Z88.2 Allergy status to sulfonamides; Z88.8 Allergy status to other drugs, medicaments and biological substances; N18.9 Chronic kidney disease, unspecified
CPT/HCPCS: 36415; 80053; 83690; 85025; 96361; 96374; 96375; J2405; J7030; S0028; Z7502; 99284

== ENCOUNTER 2019-06-27 20:30 | Emergency (ER) | payer MEDICAID ==
[~2019-06-27] VITALS: Ht 172.7 cm; Wt 131.5 kg
[~2019-06-27 20:30] MED LIST changes: +CELEXA20 MG ORAL; +IBUPROFEN800 MG ORAL; +ZOFRAN ODT8 MG ORAL
--- NOTE | 2019-06-27 20:36 | NUR ---
ED Nurse Note: pt brought in by RA Hazel from home, pt's family called 911 because pt was yelling, spitting and having a behavioral issue, pt family denies psych or drug use, pt given 10mg versed in field. Pt is currently sleeping, VSS, will continue to monitor
[2019-06-27 20:41] VITALS: BP 126/72
--- NOTE | 2019-06-27 20:47 | Emergency Room Report ---
History of Present Illness General Chief Complaint: Behavioral Complaint Source: EMS Present Illness HPI Paramedics were called due to agitation. They found her diaphoretic hypotensive and tachycardic. Versed 10 mg was given IM. The patient is more calm at this time. Unable to give any ROS. Patient was seen earlier today. She complains of dysmenorrhea. This is the history This patient states that she started her period yesterday. She states she gets severe menstrual cramps. She states that her primary care physician believes that she has endometriosis. She states this is her usual menstrual cramping pain. She states the pain is severe and causes nausea and vomiting. She is having a normal flow on her menses. She denies chest pain or shortness of breath. She denies fever or chills. She denies cough or congestion. She denies headache or neck pain. She has no other complaints. Of importance she was also seen in April for syncope. Allergies: Coded Allergies: SULFAMETHOXAZOLE (Verified Allergy, Unknown, FEELS SICK/SHAKES/VOMITING, 03/04/11) TRIMETHOPRIM (Verified Allergy, Unknown, 03/01/11) COVID-19 Screening Contact w/high risk pt: No Recent Travel to affected area: No Experienced COVID-19 symptoms?: No Patient History Limited by: medical condition Past Medical History: see triage record, old chart reviewed Social History: Reports: alcohol use, drug use Social History Narrative rodriguez [facility] Reviewed Nursing Documentation: PMH: Agreed; PSxH: Agreed Nursing Documentation-PMH Hx Asthma: Yes - CHILDHOOD Hx Gastrointestinal Problems: Yes Review of Systems All Other Systems: limited Physical Exam Vital Signs Date Time Temp Pulse Resp B/P (MAP) Pulse Ox O2 Delivery O2 Flow Rate FiO2 06/27/19 20:30 98.2 72 18 126/72 (90) 98 Room Air Sp02 EP Interpretation: reviewed, normal General Appearance: lethargic - Post treatment with Versed Head: normocephalic Eyes: bilateral eye normal inspection, bilateral eye PERRL, bilateral eye EOMI ENT: moist mucus membranes - No lingual macerations Neck: supple, no bony tend Respiratory: lungs clear, normal breath sounds Cardiovascular #1: regular rate, rhythm, no edema Cardiovascular #2: 2+ radial (R) Gastrointestinal: normal inspection, normal bowel sounds, non tender, no mass, non-distended, overweight Genitourinary: no CVA tenderness, other - Incontinent of urine Musculoskeletal: back normal, normal range of motion Neurologic: sensory intact, other Psychiatric: other - Lethargic Reflexes: 1+ knee (R), 1+ knee (L) Skin: no rash, warm/dry Medical Decision Making Diagnostic Impression: Primary Impression: Altered level of consciousness Additional Impression: Presmptive Seizure ER Course Patient presents with agitation after being seen earlier today for dysmenorrhea. Differential includes drug ingestion, electrolyte imbalance, psychiatric decompensation, bleed, seizure amongst others. Evaluation with EKG , chest x-ray and labs. Patient treated with IV hydration. Patient placed on a pvc monitor. EKG normal sinus rhythm with left atrial enlargement. Chest x-ray clear. CT normal. Labs with minimal leukocytosis, slightly low bicarbonate, elevated CPK. Patient now fully awake and oriented with a nonfocal neurologic exam. She does not remember what happened. She was incontinent during the episode. This is suggestive of possible seizure activity. There is no lingual trauma. She says she has been having headaches for the last few days. She has a headache at this time. CT head is indicated at this time and ordered. We still do not have urine back. CT 04/12/19 abnormal: Impression: No mass effect, edema or acute bleed. 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 Etiology unknown. As abnormal prior CT will start Keppra. Discussed assessment and findings with patient. Discussed prior CT abnormality. Given copies of prior CT and current CT. Headache is improved. Discussed seizure precautions with patient. DMV notification undertaken. Patient stable for outpatient observation and treatment. Laboratory Tests Test 06/27/19 21:00 06/27/19 22:48 White Blood Count 12.1 K/UL (4.8-10.8) #H Red Blood Count 4.41 M/UL (4.20-5.40) Hemoglobin 11.8 G/DL (12.0-16.0) L Hematocrit 36.9 % (37.0-47.0) L Mean Corpuscular Volume 84 FL (80-99) Mean Corpuscular Hemoglobin 26.8 PG (27.0-31.0) L Mean Corpuscular Hemoglobin Concent 32.0 G/DL (32.0-36.0) Red Cell Distribution Width 16.7 % (11.6-14.8) H Platelet Count 295 K/UL (150-450) Mean Platelet Volume 8.0 FL (6.5-10.1) Neutrophils (%) (Auto) 88.4 % (45.0-75.0) H Lymphocytes (%) (Auto) 9.8 % (20.0-45.0) L Monocytes (%) (Auto) 1.4 % (1.0-10.0) Eosinophils (%) (Auto) 0.0 % (0.0-3.0) Basophils (%) (Auto) 0.5 % (0.0-2.0) Sodium Level 138 MMOL/L (136-145) Potassium Level 3.5 MMOL/L (3.5-5.1) Chloride Level 103 MMOL/L (98-107) Carbon Dioxide Level 19 MMOL/L (21-32) L Anion Gap 16 mmol/L (5-15) H Blood Urea Nitrogen 9 mg/dL (7-18) Creatinine 1.3 MG/DL (0.55-1.30) Estimated Glomerular Filtration Rate 55.9 mL/min (>60) Glucose Level 187 MG/DL (74-106) H Calcium Level 8.9 MG/DL (8.5-10.1) Total Bilirubin 0.5 MG/DL (0.2-1.0) Aspartate Amino Transferase (AST) 16 U/L (15-37) Alanine Aminotransferase (ALT) 23 U/L (12-78) Alkaline Phosphatase 85 U/L (46-116) Total Creatine Kinase 354 U/L (26-308) H Total Protein 9.1 G/DL (6.4-8.2) H Albumin 4.0 G/DL (3.4-5.0) Globulin 5.1 g/dL Albumin/Globulin Ratio 0.8 (1.0-2.7) L Human Chorionic Gonadotropin, Qual Negative (NEGATIVE) Salicylates Level 5.4 ug/mL (2.8-20) Acetaminophen Level < 2 MCG/ML (10-30) L Serum Alcohol < 3 mg/dL Urine Color Pale yellow Urine Appearance Slightly cloudy Urine pH 5 (4.5-8.0) Urine Specific [place] 1.020 (1.005-1.035) Urine Protein 3+ (NEGATIVE) H Urine Glucose (UA) Negative (NEGATIVE) Urine Ketones 1+ (NEGATIVE) H Urine Blood 5+ (NEGATIVE) H Urine Nitrite Negative (NEGATIVE) Urine Bilirubin Negative (NEGATIVE) Urine Urobilinogen Normal MG/DL (0.0-1.0) Urine Leukocyte Esterase Negative (NEGATIVE) Urine RBC Tntc /HPF (0 - 2) H Urine WBC 2-4 /HPF (0 - 2) Urine Squamous Epithelial Cells Few /LPF (NONE/OCC) Urine Bacteria Few /HPF (NONE) Urine HCG, Qualitative Negative (NEGATIVE) Urine Opiates Screen Negative (NEGATIVE) Urine Barbiturates Screen Negative (NEGATIVE) Phencyclidine (PCP) Screen Negative (NEGATIVE) Urine Amphetamines Screen Negative (NEGATIVE) Urine Benzodiazepines Screen Positive (NEGATIVE) H Urine Cocaine Screen Negative (NEGATIVE) Urine Marijuana (THC) Screen Positive (NEGATIVE) H EKG Diagnostic Results Rate: normal Rhythm: NSR ST Segments: no acute changes - Left atrial enlargement Rhythm Strip Diag. Results EP Interpretation: yes Rhythm: NSR, no PVC's, no ectopy CT/MRI/US Diagnostic Results CT/MRI/US Diagnostic Results : Imaging Test Ordered: head Impression Initial CT reading as no abnormalities. Subsequent CT as below. Impression: No mass effect, edema or acute bleed. Abnormal left infratemporal fossa incompletely imaged on the current exam (not mentioned by [facility]; please refer to previous maxillofacial CT report 11/30/2013 , CT head 04/12/2019). Last Vital Signs Date Time Temp Pulse Resp B/P (MAP) Pulse Ox O2 Delivery O2 Flow Rate FiO2 06/28/19 00:40 98.4 78 18 126/72 98 Room Air Status: improved Disposition: HOME, SELF-CARE Condition: Improved Scripts Levetiracetam (Keppra) 250 Mg Tablet 500 MG ORAL EVERY 12 HOURS, #50 TAB 0 Refills Prov: Víctor Forrest MD 06/27/19 Víctor Forrest MD Jun 27, 2019 20:47
[2019-06-27 21:19] LABS: HEMATOCRIT 36.9 % (37.0-47.0); HEMOGLOBIN 11.8 G/DL (12.0-16.0); MEAN CORPUSCULAR VOLUME 84 FL (80-99); PLATELET COUNT 295 K/UL (150-450); RED BLOOD COUNT 4.41 M/UL (4.20-5.40); RED CELL DISTRIBUTION WIDTH 16.7 % (11.6-14.8); WHITE BLOOD COUNT 12.1 K/UL (4.8-10.8)
[2019-06-27 21:20] LABS: BASOPHILS % (AUTO) 0.5 % (0.0-2.0); LYMPHOCYTES % (AUTO) 9.8 % (20.0-45.0); MONOCYTES % (AUTO) 1.4 % (1.0-10.0); NEUTROPHILS % (AUTO) 88.4 % (45.0-75.0)
[2019-06-27 21:36] LABS: ANION GAP 16 mmol/L (5-15); BLOOD UREA NITROGEN 9 mg/dL (7-18); CALCIUM 8.9 MG/DL (8.5-10.1); CARBON DIOXIDE 19 MMOL/L (21-32); CHLORIDE 103 MMOL/L (98-107); CREATININE 1.3 MG/DL (0.55-1.30); POTASSIUM 3.5 MMOL/L (3.5-5.1); SODIUM 138 MMOL/L (136-145)
[2019-06-27 21:41] LABS: ALANINE AMINOTRANSFERASE 23 U/L (12-78); ALBUMIN/GLOBULIN RATIO 0.8 (1.0-2.7); ALKALINE PHOSPHATASE 85 U/L (46-116); ASPARTATE AMINO TRANSFERASE 16 U/L (15-37); BILIRUBIN,TOTAL 0.5 MG/DL (0.2-1.0); CREATINE KINASE 354 U/L (26-308)
--- NOTE | 2019-06-27 22:19 | NUR ---
ED Nurse Note: aunt's number [phone]
--- NOTE | 2019-06-27 22:30 | NUR ---
ED Nurse Note: Pt awake and alert, lucid and answering questions. Pt states she can not remember anything, called pt's aunt. Pt reportsd a headache and N, ERMD made aware.
[2019-06-27] MEDS ORDERED: levETIRAcetam 500mg/NS100ml 100 ML IVPB ONE (22:45)
--- NOTE | 2019-06-27 23:10 | Diagnostic Imaging Report ---
Indication: Headache Technique: Contiguous 5 mm thick transaxial imaging of the head obtained in a Siemens Sensation [address] scanner. Soft tissue and bone windows generated. Automatic Exposure Control was utilized. Total Dose length Product (DLP): 1015mGycm CT Dose Index Volume (CTDIvol): 53.4 mGy Comparison: 04/12/2019 Findings: The size and configuration of the cortical sulci, basal cisterns, and ventricles are within normal limits for age. There is no mass effect, midline shift, or edema identified. There is no evidence of acute hemorrhage or abnormal intra-axial or extra-axial fluid collections. The bones are unremarkable. Once again, there is abnormality of the left infratemporal fossa which appears dense with the loss of tissue planes. This has been previously described and is only partially seen on the current study. Impression: No mass effect, edema or acute bleed. Abnormal left infratemporal fossa incompletely imaged on the current exam (not mentioned by [facility]; please refer to previous maxillofacial CT report 11/30/2013, CT head 04/12/2019). [facility] has communicated the preliminary results to the Emergency Department. Their findings are mostly concordant with this report. The CT scanner at [facility] is accredited by the [employer] and the scans are performed using dose optimization techniques as appropriate to a performed exam including Automatic Exposure control.
[2019-06-27 23:12] LABS: BILIRUBIN, URINE NEGATIVE (NEGATIVE); COLOR,URINE PALE YELLOW; GLUCOSE, URINE (UA) NEGATIVE (NEGATIVE); KETONES,URINE 1+ (NEGATIVE); LEUKOCYTE ESTERASE ,URINE NEGATIVE (NEGATIVE); NITRITE,URINE NEGATIVE (NEGATIVE); PH,URINE 5 (4.5-8.0); PROTEIN,URINE 3+ (NEGATIVE); UROBILINOGEN,URINE NORMAL MG/DL (0.0-1.0)
[2019-06-27] MEDS ORDERED: KEPPRA500 MG ORAL (23:16)
[2019-06-27 23:24] LABS: APPEARANCE,URINE SLIGHTLY CLOUDY
[2019-06-27 23:30] VITALS: BP 132/78
[2019-06-28 00:40] VITALS: BP 126/72
--- NOTE | 2019-06-28 00:40 | NUR ---
ER DISCHARGE NOTE: Patient is cleared to be discharged per ERMD, pt is aox4, on room air, with stable vital signs. pt was given dc and prescription instructions, pt was able to verbalize understanding, pt id band and iv site removed without complications. pt is able to ambulate with steady gait. pt took all belongings.
== END 2019-06-28 00:40 | disposition home or self-care (01) ==
LOC: EDBD 20:30 → EDUNIT# 20:30 → EMR 20:45
DX: R41.82 Altered mental status, unspecified (principal); I95.9 Hypotension, unspecified; R00.0 Tachycardia, unspecified; Z88.2 Allergy status to sulfonamides; R32 Unspecified urinary incontinence; D72.829 Elevated white blood cell count, unspecified; R51 Headache
CPT/HCPCS: 36415; 70450; 80053; 80307; 81003; 81025; 82550; 84703; 85025; 93005; 96361; 96374; 96375; G0480; G0481; J1953; J2405; J7030; Z7502; 99284

== ENCOUNTER 2020-02-15 19:35 | Emergency (ER) | payer MEDICAID ==
[~2020-02-15] VITALS: Ht 170.2 cm; Wt 104.3 kg
[~2020-02-15 19:35] MED LIST changes: +KEPPRA500 MG ORAL
--- NOTE | 2020-02-15 19:38 | NUR ---
ED Nurse Note: Patient brought in by ambulance from home [id number] d/t lower abdominal cramping pain that started today, per pt she missed her period for 3 days and pain started when menstrual period started. Patient reports cramping pain 10/10, when no cramps 4/10. Patient aao x 4 and ambulatory. Patient also reports vomiting that started today x 3. Patient stable during assessment, no acute distress noted.
[2020-02-15 19:40] VITALS: BP 133/72
--- NOTE | 2020-02-15 19:44 | NUR ---
ED Nurse Note: Patient ambulating to restroom to provide urine sample.
[2020-02-15] MEDS: Acetaminophen 500mg (ES) tab ORAL ONE ×2 (19:52→20:06)
[2020-02-15 19:55] LABS: BASOPHILS % (AUTO) 1.2 % (0.0-2.0); EOSINOPHILS % (AUTO) 0.7 % (0.0-3.0); HEMATOCRIT 36.9 % (37.0-47.0); HEMOGLOBIN 11.9 G/DL (12.0-16.0); LYMPHOCYTES % (AUTO) 21.5 % (20.0-45.0); MEAN CORPUSCULAR VOLUME 87 FL (80-99); NEUTROPHILS % (AUTO) 70.6 % (45.0-75.0); PLATELET COUNT 255 K/UL (150-450); RED BLOOD COUNT 4.23 M/UL (4.20-5.40); RED CELL DISTRIBUTION WIDTH 15.4 % (11.6-14.8); WHITE BLOOD COUNT 6.5 K/UL (4.8-10.8)
--- NOTE | 2020-02-15 20:00 | NUR ---
ED Nurse Note: Patient refused oral tylenol d/t nausea/vomiting and states "it will not help", ERMD informed, waiting on test results prior to administering toradol.
[2020-02-15 20:09] LABS: ANION GAP 8 mmol/L (5-15); BLOOD UREA NITROGEN 9 mg/dL (7-18); CALCIUM 8.6 MG/DL (8.5-10.1); CARBON DIOXIDE 25 MMOL/L (21-32); CHLORIDE 103 MMOL/L (98-107); CREATININE 1.2 MG/DL (0.55-1.30); POTASSIUM 3.6 MMOL/L (3.5-5.1); SODIUM 136 MMOL/L (136-145)
[2020-02-15 20:13] LABS: ALANINE AMINOTRANSFERASE 16 U/L (12-78); ALBUMIN 3.7 G/DL (3.4-5.0); ALBUMIN/GLOBULIN RATIO 0.8 (1.0-2.7); ALKALINE PHOSPHATASE 68 U/L (46-116); ASPARTATE AMINO TRANSFERASE 14 U/L (15-37); BILIRUBIN,TOTAL 0.3 MG/DL (0.2-1.0)
[2020-02-15] MEDS ORDERED: Ketorolac 30mg Inj IV ONE (20:15)
[2020-02-15 20:26] LABS: APPEARANCE,URINE CLEAR; BILIRUBIN, URINE NEGATIVE (NEGATIVE); COLOR,URINE PALE YELLOW; GLUCOSE, URINE (UA) NEGATIVE (NEGATIVE); KETONES,URINE NEGATIVE (NEGATIVE); LEUKOCYTE ESTERASE ,URINE 1+ (NEGATIVE); NITRITE,URINE NEGATIVE (NEGATIVE); PH,URINE 7 (4.5-8.0); PROTEIN,URINE 1+ (NEGATIVE); UROBILINOGEN,URINE NORMAL MG/DL (0.0-1.0)
--- NOTE | 2020-02-15 21:04 | NUR ---
ED Nurse Note: ERMD notified and aware pt request to be seen by ERMD.
--- NOTE | 2020-02-15 21:05 | NUR ---
ED Nurse Note: Patient requested to remove IV, IV on left AC removed intact no complications, pt states she wants to AMA, JC informed, AMA paperwork in process, pt aware.
--- NOTE | 2020-02-15 21:16 | NUR ---
AMA: SEE AMA FORM.
--- NOTE | 2020-02-15 21:58 | Emergency Room Report ---
History of Present Illness General Chief Complaint: Abdominal Pain Source: Patient Present Illness HPI 39-year-old female, presents with abdominal cramps that started 3 days prior to arrival, aggravated by menstrual bleeding, that started today, no alleviating factors severity is moderate, intermittent, no nausea no vomiting no chest pain or shortness of breath patient states that she has really bad. 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: No Patient History Past Medical History: see triage record Last Menstrual Period: 02/12/20 Now: No Reviewed Nursing Documentation: PMH: Agreed; PSxH: Agreed Nursing Documentation-PMH Hx Asthma: Yes Hx Gastrointestinal Problems: Yes Review of Systems All Other Systems: negative except mentioned in HPI Physical Exam Vital Signs Date Time Temp Pulse Resp B/P (MAP) Pulse Ox O2 Delivery O2 Flow Rate FiO2 02/15/20 19:37 97.9 88 19 138/76 (96) 98 Room Air General Appearance: well appearing, no apparent distress Head: normocephalic, atraumatic ENT: hearing grossly normal, normal voice Neck: full range of motion, supple Respiratory: no respiratory distress, speaking full sentences Musculoskeletal: no calf tenderness Neurologic: alert, normal gait Psychiatric: mood/affect normal Skin: no rash Medical Decision Making Diagnostic Impression: Primary Impression: Abdominal pain Qualified Codes: R10.30 - Lower abdominal pain, unspecified ER Course 39-year-old female presents with menstrual pain differential also includes appendicitis diverticulitis patient states this is her same menstrual pain that she always has, patient given Tylenol and Toradol Patient was to be reevaluated however she eloped after receiving her pain medication Labs unremarkable Laboratory Tests Test 02/15/20 18:25 02/15/20 19:45 White Blood Count 6.5 K/UL (4.8-10.8) Red Blood Count 4.23 M/UL (4.20-5.40) Hemoglobin 11.9 G/DL (12.0-16.0) L Hematocrit 36.9 % (37.0-47.0) L Mean Corpuscular Volume 87 FL (80-99) Mean Corpuscular Hemoglobin 28.0 PG (27.0-31.0) Mean Corpuscular Hemoglobin Concent 32.1 G/DL (32.0-36.0) Red Cell Distribution Width 15.4 % (11.6-14.8) H Platelet Count 255 K/UL (150-450) Mean Platelet Volume 7.8 FL (6.5-10.1) Neutrophils (%) (Auto) 70.6 % (45.0-75.0) Lymphocytes (%) (Auto) 21.5 % (20.0-45.0) Monocytes (%) (Auto) 6.0 % (1.0-10.0) Eosinophils (%) (Auto) 0.7 % (0.0-3.0) Basophils (%) (Auto) 1.2 % (0.0-2.0) Sodium Level 136 MMOL/L (136-145) Potassium Level 3.6 MMOL/L (3.5-5.1) Chloride Level 103 MMOL/L (98-107) Carbon Dioxide Level 25 MMOL/L (21-32) Anion Gap 8 mmol/L (5-15) Blood Urea Nitrogen 9 mg/dL (7-18) Creatinine 1.2 MG/DL (0.55-1.30) Estimated Glomerular Filtration Rate > 60 mL/min (>60) Glucose Level 129 MG/DL (74-106) H Calcium Level 8.6 MG/DL (8.5-10.1) Total Bilirubin 0.3 MG/DL (0.2-1.0) Aspartate Amino Transferase (AST) 14 U/L (15-37) L Alanine Aminotransferase (ALT) 16 U/L (12-78) Alkaline Phosphatase 68 U/L (46-116) Total Protein 8.3 G/DL (6.4-8.2) H Albumin 3.7 G/DL (3.4-5.0) Globulin 4.6 g/dL Albumin/Globulin Ratio 0.8 (1.0-2.7) L Lipase 121 U/L (73-393) Human Chorionic Gonadotropin, Quant < 1 mIU/mL (1-6) L Urine Color Pale yellow Urine Appearance Clear Urine pH 7 (4.5-8.0) Urine Specific [place] 1.010 (1.005-1.035) Urine Protein 1+ (NEGATIVE) H Urine Glucose (UA) Negative (NEGATIVE) Urine Ketones Negative (NEGATIVE) Urine Blood 4+ (NEGATIVE) H Urine Nitrite Negative (NEGATIVE) Urine Bilirubin Negative (NEGATIVE) Urine Urobilinogen Normal MG/DL (0.0-1.0) Urine Leukocyte Esterase 1+ (NEGATIVE) H Urine RBC 15-20 /HPF (0 - 2) H Urine WBC 0-2 /HPF (0 - 2) Urine Squamous Epithelial Cells Occasional /LPF Urine Bacteria Occasional /HPF (NONE) Urine HCG, Qualitative Negative (NEGATIVE) Last Vital Signs Date Time Temp Pulse Resp B/P (MAP) Pulse Ox O2 Delivery O2 Flow Rate FiO2 02/15/20 21:09 97.9 02/15/20 19:40 85 18 Room Air 02/15/20 19:40 133/72 98 Disposition: ELOPED Condition: Stable Referrals: [facility],REFERR[facility] (PCP) [facility] Viviane Russell [facility] Patient Instructions: Abdominal Pain, Adult Additional Instructions: The patient was provided with discharge instructions, notified to follow-up with a primary care doctor and or specialist in the next 24-48 hours, and to return to the ED if they have worsening of their symptoms. Please note that this report is being documented using [employer] technology. This can lead to erroneous entry secondary to incorrect interpretation by the dictating instrument. Lai Knight MD Feb 15, 2020 21:58
[2020-02-16] MEDS ORDERED: DICYCLOMINE HCL10 MG ORAL (13:22)
[2020-02-16] MEDS ORDERED: OMEPRAZOLE20 M3 ORAL (13:22)
[2020-02-16] MEDS ORDERED: ONDANSETRON ODT4 MG BC (13:22)
== END 2020-02-15 21:18 | disposition left against medical advice (07) ==
LOC: EDUNIT# 19:35 → EDBD 19:35 → EMR 19:45
DX: R10.30 Lower abdominal pain, unspecified (principal); J45.909 Unspecified asthma, uncomplicated; Z88.8 Allergy status to other drugs, medicaments and biological substances
CPT/HCPCS: 36415; 80053; 81003; 81025; 83690; 84702; 85025; 96374; 96375; J1885; J2405; Z7502; 99284

== ENCOUNTER 2020-02-16 11:46 | Emergency (ER) | payer MEDICAID ==
[~2020-02-16] VITALS: Ht 160 cm; Wt 116.1 kg
[2020-02-16] MEDS ORDERED: Capsaicin 0.075% Cream TOPIC ONE (12:00)
--- NOTE | 2020-02-16 12:05 | NUR ---
ED Nurse Note: Pt BIBA R68 for L abdominal and flank pain for 1 days. Pt states she also had bloody emesis this morning. Pt is alert and orientedx4, ambulatory. Pt has been seen by ERMD. Pt also has nausea dn states she vomited many times.
[2020-02-16 12:10] VITALS: BP 160/87
[2020-02-16 12:17] LABS: HEMATOCRIT 41.4 % (37.0-47.0); HEMOGLOBIN 13.3 G/DL (12.0-16.0); MEAN CORPUSCULAR VOLUME 89 FL (80-99); PLATELET COUNT 301 K/UL (150-450); RED BLOOD COUNT 4.65 M/UL (4.20-5.40); RED CELL DISTRIBUTION WIDTH 15.3 % (11.6-14.8); WHITE BLOOD COUNT 8.3 K/UL (4.8-10.8)
[2020-02-16 12:24] LABS: CALCIUM 9.2 MG/DL (8.5-10.1); CREATININE 1.3 MG/DL (0.55-1.30); POTASSIUM 3.3 MMOL/L (3.5-5.1)
[2020-02-16 12:28] LABS: ALBUMIN/GLOBULIN RATIO 0.7 (1.0-2.7); BILIRUBIN,TOTAL 0.4 MG/DL (0.2-1.0)
[2020-02-16] MEDS ORDERED: Ketorolac 30mg Inj IV ONE (12:30)
[2020-02-16] MEDS ORDERED: Dicyclomine HCl 10mg/5ml oral soln ORAL ONE (12:30)
[2020-02-16] MEDS ORDERED: DICYCLOMINE HCL10 MG ORAL (13:22)
[2020-02-16] MEDS ORDERED: OMEPRAZOLE20 M3 ORAL (13:22)
[2020-02-16] MEDS ORDERED: ONDANSETRON ODT4 MG BC (13:22)
[2020-02-16 13:35] VITALS: BP 154/84
--- NOTE | 2020-02-22 13:48 | Emergency Room Report ---
History of Present Illness General Chief Complaint: Abdominal Pain Source: Patient Present Illness HPI Patient is a 39-year-old female presents for increased abdominal pain. Reports having prior history of recent ER visit. Had apparently not been able to fill her prescriptions. Prior history of abdominal pain. Multiple prior imaging studies performed in the past. Denies any hematemesis but does report having vomiting as well as diarrhea. Denies any bloody stools. Denies feeling dizzy or lightheaded. Allergies: Coded Allergies: SULFAMETHOXAZOLE (Verified Allergy, Unknown, FEELS SICK/SHAKES/VOMITING, 03/04/11) TRIMETHOPRIM (Verified Allergy, Unknown, 03/01/11) COVID-19 Screening Contact w/high risk pt: No Recent Travel to affected area: No Experienced COVID-19 symptoms?: No COVID-19 Testing performed VAMP STRAP IRONER: No Patient History Past Medical History: see triage record Now: No Reviewed Nursing Documentation: PMH: Agreed; PSxH: Agreed Nursing Documentation-PMH Past Medical History: No History, Except For Hx Asthma: Yes Hx Gastrointestinal Problems: Yes Review of Systems All Other Systems: negative except mentioned in HPI Physical Exam Sp02 EP Interpretation: reviewed, normal General Appearance: normal inspection, well appearing, no apparent distress, alert, GCS 15, non-toxic Head: atraumatic ENT: normal ENT inspection, hearing grossly normal, normal voice Neck: normal inspection, full range of motion, supple, no bony tend Respiratory: normal inspection, lungs clear, normal breath sounds, no respiratory distress, no retraction, no wheezing Cardiovascular #1: regular rate, rhythm, no edema Gastrointestinal: normal inspection, normal bowel sounds, non tender, soft, no guarding, no hernia Genitourinary: no CVA tenderness Musculoskeletal: normal inspection, back normal, normal range of motion Neurologic: alert, motor strength/tone normal, professional nurse III-XII nml as tested, oriented x3, responsive, speech normal, normal inspection Psychiatric: normal inspection, judgement/insight normal, mood/affect normal Medical Decision Making Diagnostic Impression: Primary Impression: Gastroenteritis Additional Impression: Dysmenorrhea ER Course Patient presented for lower abdominal pain. Differential diagnosis include was not limited to dysmenorrhea, colitis, marijuana hyperemesis, gastroenteritis among others. Patient was given IV fluids as well as medications for pain. She was noted to have prior imaging studies which did not show any acute pathology. Laboratory testing was unremarkable. Patient appears to be stable for outpatient management was advised to follow-up with her primary care physician for recheck. This medical record is generated with [employer] associate professor of physics software. There may be some associate professor of physics discrepancies related to use of this software Labs Test 02/16/20 11:50 White Blood Count 8.3 K/UL (4.8-10.8) Red Blood Count 4.65 M/UL (4.20-5.40) Hemoglobin 13.3 G/DL (12.0-16.0) Hematocrit 41.4 % (37.0-47.0) Mean Corpuscular Volume 89 FL (80-99) Mean Corpuscular Hemoglobin 28.5 PG (27.0-31.0) Mean Corpuscular Hemoglobin Concent 32.0 G/DL (32.0-36.0) Red Cell Distribution Width 15.3 % (11.6-14.8) Platelet Count 301 K/UL (150-450) Mean Platelet Volume 7.9 FL (6.5-10.1) Neutrophils (%) (Auto) % (45.0-75.0) Lymphocytes (%) (Auto) % (20.0-45.0) Monocytes (%) (Auto) % (1.0-10.0) Eosinophils (%) (Auto) % (0.0-3.0) Basophils (%) (Auto) % (0.0-2.0) Differential Total Cells Counted 100 Neutrophils % (Manual) 86 % (45-75) Lymphocytes % (Manual) 11 % (20-45) Monocytes % (Manual) 3 % (1-10) Eosinophils % (Manual) 0 % (0-3) Basophils % (Manual) 0 % (0-2) Band Neutrophils 0 % (0-8) Platelet Estimate Adequate Platelet Morphology Normal Hypochromasia 1+ Anisocytosis 1+ Sodium Level 138 MMOL/L (136-145) Potassium Level 3.3 MMOL/L (3.5-5.1) Chloride Level 101 MMOL/L (98-107) Carbon Dioxide Level 26 MMOL/L (21-32) Anion Gap 11 mmol/L (5-15) Blood Urea Nitrogen 7 mg/dL (7-18) Creatinine 1.3 MG/DL (0.55-1.30) Estimat Glomerular Filtration Rate 55.9 mL/min (>60) Glucose Level 108 MG/DL (74-106) Calcium Level 9.2 MG/DL (8.5-10.1) Total Bilirubin 0.4 MG/DL (0.2-1.0) Aspartate Amino Transf (AST/SGOT) 12 U/L (15-37) Alanine Aminotransferase (ALT/SGPT) 17 U/L (12-78) Alkaline Phosphatase 75 U/L (46-116) Total Protein 9.4 G/DL (6.4-8.2) Albumin 4.0 G/DL (3.4-5.0) Globulin 5.4 g/dL Albumin/Globulin Ratio 0.7 (1.0-2.7) Lipase 111 U/L (73-393) Status: improved Disposition: HOME, SELF-CARE Condition: Stable Scripts Omeprazole (OMEPRAZOLE) 20 Mg Tablet.dr 20 MG ORAL DAILY, #30 TAB Prov: Marcos Florez MD 02/16/20 Dicyclomine Hcl* (DICYCLOMINE HCL*) 10 Mg Capsule 10 MG ORAL QID, #20 CAP Prov: Marcos Florez MD 02/16/20 Ondansetron Odt* (ZOFRAN ODT*) 4 Mg Tab.rapdis 4 MG BC EVERY 6 HOURS PRN for Nausea & Vomiting, #10 TAB 0 Refills Prov: Marcos Florez MD 02/16/20 Patient Instructions: Abdominal Pain, Adult Additional Instructions: Follow up with your doctor for recheck. Return if high fever, persistent vomiting, or other concerns. Do not smoke marijuana. Marcos Florez MD Feb 22, 2020 13:48
== END 2020-02-16 13:36 | disposition home or self-care (01) ==
LOC: EDBD 11:46 → EMR 12:27
DX: K21.9 Gastro-esophageal reflux disease without esophagitis (principal); N94.6 Dysmenorrhea, unspecified; Z88.2 Allergy status to sulfonamides; Z88.8 Allergy status to other drugs, medicaments and biological substances
CPT/HCPCS: 36415; 80053; 83690; 85007; 85025; 96361; 96374; 96375; J1885; J2405; J7030; Z7502; 99284; J8499